=== PATIENT | female | born 1990 | race Caucasian/White ===

== ENCOUNTER → 2019-11-20 | Outpatient (CLI) | payer OTHER ==
[2019-11-20 15:12] LABS: BASOPHILS ABSOLUTE AUTO 0.04 K/mm3 (0.00-0.23); BASOPHILS PERCENT AUTO 1 % (0-2); EOSINOPHILS ABSOLUTE AUTO 0.09 K/mm3 (0.00-0.68); EOSINOPHILS PERCENT AUTO 1 % (0-6); Hematocrit 42.6 % (33.0-51.0); Hemoglobin 14.5 g/dL (11.5-16.0); IMMATURE GRAN ABSOLUTE AUTO 0.02 K/mm3 (0.00-0.10); IMMATURE GRAN PERCENT AUTO 0 % (0-1); LYMPHOCYTES ABSOLUTE AUTO 2.03 K/mm3 (0.84-5.20); LYMPHOCYTES PERCENT AUTO 32 % (21-46); MONOCYTES ABSOLUTE AUTO 0.44 K/mm3 (0.16-1.47); MONOCYTES PERCENT AUTO 7 % (4-13); Mean Corpuscular HGB 29.8 pg (26.0-34.0); Mean Corpuscular Volume 88 fL (80-100); NEUTROPHILS ABSOLUTE AUTO 3.65 K/mm3 (1.96-9.15); NEUTROPHILS PERCENT AUTO 58 % (41-73); RDW Coefficient Variation 11.8 % (11.7-14.2); RDW Standard Deviation 37.7 fL (35.1-46.3); Red Blood Cell Count 4.87 M/mm3 (3.80-5.20); White Blood Cell Count 6.27 K/mm3 (4.00-11.30)
[2019-11-20 15:24] LABS: Mean Platelet Volume 13.1 fL (9.1-12.4)
[2019-11-20 15:28] LABS: Alanine Aminotransfer (ALT/SGP 57 U/L (12-78); Albumin, Blood 4.6 g/dL (3.4-5.0); Albumin/Globulin Ratio 1.5 (0.8-1.8); Alk Phos 55 U/L (40-126); Anion Gap 12 mmol/L (6-16); Aspartate Aminotrans (AST/SGOT 60 U/L (12-37); Bilirubin, Total 0.8 mg/dL (0.1-1.0); Blood Urea Nitrogen 17 mg/dL (8-24); Bun/Creatinine Ratio 27.4 (12.0-20.0); CO2, Blood 25 mmol/L (21-32); Calcium, Blood 9.3 mg/dL (8.5-10.1); Chloride, Blood 100 mmol/L (98-108); Creatinine, Blood 0.62 mg/dL (0.40-1.00); Globulin, Blood 3.1 g/dL (2.2-4.0); Glomerular Filtration Rate >60 (60-); Glucose, Blood 85 mg/dL (70-99); Sodium, Blood 137 mmol/L (136-145); Thyroid Stimulating Hormone 1.936 uIU/mL (0.360-4.800); Total Protein, Blood 7.7 g/dL (6.4-8.2)
[2019-11-20 16:17] LABS: Platelet Count 162 K/mm3 (150-400)
== END ==
LOC: LAB SHORT 15:04 → LAB EV 15:04
PROVIDERS: Nurse Practitioner
DX: R53.83 Other fatigue (principal); Z86.39 Personal history of other endocrine, nutritional and metabolic disease
CPT/HCPCS: 80053; 84443; 85025

== ENCOUNTER → 2020-08-31 | Outpatient (CLI) | payer OTHER | END | disposition home or self-care (01) | LOC: LAB EV 16:19 → LAB SHORT 16:19 | DX: R07.0 Pain in throat (principal) | CPT/HCPCS: 87081 ==

== ENCOUNTER 2021-01-18 19:04 | Observation (INO) | payer OTHER ==
[~2021-01-18] VITALS: Ht 167.6 cm; Wt 59.6 kg
[2021-01-18] MEDS ORDERED: FISH OIL 1,2001 EAC1 PO (19:23)
[2021-01-18] MEDS ORDERED: ONE DAILY ESS400 MCG PO (19:23)
[2021-01-18] MEDS ORDERED: MAGNESIUM GLU27.5 M1 PO (19:27)
[2021-01-18] MEDS ORDERED: ELEMENTAL ZINC30 MG PO (19:27)
[2021-01-18] MEDS ORDERED: VITAMIN B-625 MG PO (19:28)
[2021-01-18 19:44] LABS: BASOPHILS ABSOLUTE AUTO 0.05 K/mm3 (0.00-0.23); BASOPHILS PERCENT AUTO 1 % (0-2); EOSINOPHILS ABSOLUTE AUTO 0.07 K/mm3 (0.00-0.68); EOSINOPHILS PERCENT AUTO 1 % (0-6); Hematocrit 44.4 % (33.0-51.0); Hemoglobin 14.6 g/dL (11.5-16.0); IMMATURE GRAN ABSOLUTE AUTO 0.02 K/mm3 (0.00-0.10); IMMATURE GRAN PERCENT AUTO 0 % (0-1); LYMPHOCYTES ABSOLUTE AUTO 2.72 K/mm3 (0.84-5.20); LYMPHOCYTES PERCENT AUTO 44 % (21-46); MONOCYTES PERCENT AUTO 5 % (4-13); Mean Corpuscular HGB 30.1 pg (26.0-34.0); Mean Corpuscular HGB Conc 32.9 g/dL (31.5-36.5); Mean Corpuscular Volume 92 fL (80-100); NEUTROPHILS PERCENT AUTO 49 % (41-73); Platelet Count 133 K/mm3 (150-400); RDW Coefficient Variation 12.1 % (11.7-14.2); RDW Standard Deviation 40.7 fL (35.1-46.3); Red Blood Cell Count 4.85 M/mm3 (3.80-5.20); White Blood Cell Count 6.16 K/mm3 (4.00-11.30)
[2021-01-18 19:58] LABS: Alanine Aminotransfer (ALT/SGP 60 U/L (12-78); Albumin/Globulin Ratio 1.5 (0.8-1.8); Alk Phos 44 U/L (50-136); Anion Gap 8 mmol/L (6-16); Aspartate Aminotrans (AST/SGOT 25 U/L (12-37); Bilirubin, Total 0.6 mg/dL (0.1-1.0); Blood Urea Nitrogen 25 mg/dL (8-24); Bun/Creatinine Ratio 31.2 (12.0-20.0); CO2, Blood 26 mmol/L (21-32); Calcium, Blood 9.8 mg/dL (8.5-10.1); Chloride, Blood 105 mmol/L (98-108); Globulin, Blood 3.4 g/dL (2.2-4.0); Glomerular Filtration Rate >60 (60-); Glucose, Blood 82 mg/dL (70-99); Potassium, Blood 4.1 mmol/L (3.5-5.5); Sodium, Blood 139 mmol/L (136-145); Total Protein, Blood 8.4 g/dL (6.4-8.2)
[2021-01-18 19:59] LABS: Mean Platelet Volume 13.7 fL (9.1-12.4)
[2021-01-18 21:22] LABS: Troponin I <0.015 ng/mL (0.000-0.040)
[2021-01-18 23:58] LABS: Source, Urine Clean Catch
[2021-01-19 00:01] LABS: Bilirubin, Urine Neg (Neg); Blood, Urine Neg (Neg); Glucose Qualitative, Urine Neg (Neg); Ketones, Urine Neg (Neg); Leukocyte Esterase, Urine Neg (Neg); Nitrite, Urine Neg (Neg); Protein, Urine Neg (Neg); Urobilinogen, Urine NORM (Normal)
[2021-01-19 00:06] LABS: Appearance, Urine Clear (Clear); Color, Urine Yellow (P-Yellow)
[2021-01-19 02:07] LABS: Influenza A, PCR NEGATIVE (NEGATIVE); Influenza B, PCR NEGATIVE (NEGATIVE); Resp Syncytial Virus, PCR NEGATIVE (NEGATIVE); SARS-Cov-2 (COVID-19) PCR, MMC NEGATIVE (NEGATIVE)
[2021-01-19 04:08] LABS: BASOPHILS ABSOLUTE AUTO 0.06 K/mm3 (0.00-0.23); BASOPHILS PERCENT AUTO 1 % (0-2); EOSINOPHILS ABSOLUTE AUTO 0.12 K/mm3 (0.00-0.68); EOSINOPHILS PERCENT AUTO 2 % (0-6); Hematocrit 38.2 % (33.0-51.0); Hemoglobin 12.9 g/dL (11.5-16.0); IMMATURE GRAN ABSOLUTE AUTO 0.01 K/mm3 (0.00-0.10); IMMATURE GRAN PERCENT AUTO 0 % (0-1); LYMPHOCYTES ABSOLUTE AUTO 3.73 K/mm3 (0.84-5.20); LYMPHOCYTES PERCENT AUTO 56 % (21-46); MONOCYTES PERCENT AUTO 6 % (4-13); Mean Corpuscular HGB 30.6 pg (26.0-34.0); Mean Corpuscular HGB Conc 33.8 g/dL (31.5-36.5); Mean Corpuscular Volume 91 fL (80-100); NEUTROPHILS ABSOLUTE AUTO 2.36 K/mm3 (1.96-9.15); NEUTROPHILS PERCENT AUTO 35 % (41-73); Platelet Count 128 K/mm3 (150-400); RDW Coefficient Variation 12.1 % (11.7-14.2); RDW Standard Deviation 39.8 fL (35.1-46.3); Red Blood Cell Count 4.21 M/mm3 (3.80-5.20); White Blood Cell Count 6.68 K/mm3 (4.00-11.30)
[2021-01-19 04:09] LABS: Mean Platelet Volume 13.4 fL (9.1-12.4)
[2021-01-19 04:18] LABS: Anion Gap 5 mmol/L (6-16); Blood Urea Nitrogen 21 mg/dL (8-24); Bun/Creatinine Ratio 29.2 (12.0-20.0); CO2, Blood 26 mmol/L (21-32); Calcium, Blood 8.7 mg/dL (8.5-10.1); Chloride, Blood 112 mmol/L (98-108); Creatinine, Blood 0.72 mg/dL (0.40-1.00); Glomerular Filtration Rate >60 (60-); Glucose, Blood 92 mg/dL (70-99); Potassium, Blood 3.7 mmol/L (3.5-5.5); Sodium, Blood 143 mmol/L (136-145)
--- NOTE | 2021-01-19 05:29 | NUR ---
ADMIT NOTE/SHIFT SUMMARY PATIENT ADMITTED FROM ER EARLIER THIS SHIFT. FIANCE AT THE BEDSIDE. PATIENT PLEASENT AND COOPERATIVE AND REPORTS SOME DIZZINESS WITH STANDING AND AMBULATION, HOWEVER, PATIENT WAS ABLE TO EASILY TRANSFER SELF FROM THE GURNEY TO THE BED. PATIENT SETTLED IN AND ORIENTED TO THE ROOM, UNIT, AND CALL LIGHT. ZOLL AT THE BEDSIDE, PADS ON PATIENT. ATROPINE AT THE BEDSIDE. HEART RATE HAS RANGED FROM APPROX THE UPPER 30'S TO THE 50'S. PATIENT HAS APPEARED TO SLEEP WELL WITH NO COMPLAINTS OF PAIN. PATIENT CURRENTLY APPEARS TO BE ASLEEP. WILL CONTINUE CURRENT PLAN OF CARE AND REPORT TO ONCOMING RN.
--- NOTE | 2021-01-19 11:00 | NUR ---
UPDATE PT ABLE TO TOLERATE AMBULATING T/O UNIT. PT REPORTS SOB BUT NO DIZZINESS. SPOKE WITH HC RN, WILL CONTINUE WITH TREADMILL STRESS TEST THIS AFTERNOON.
--- NOTE | 2021-01-19 11:11 | NUR ---
BAG MACHINE HELPER AT BEDSIDE BAG MACHINE HELPER AT BEDSIDE. PT NO LONGER NPO. ORDERS FOR LABS, SEE EHR. ORDERS FOR STRESS TEST, SEE EHR. IF PT ABLE TO TOLERATE AMBULATING HALLWAYS INFORMED TO CONTINUE WITH TREADMILL STRESS TEST THIS PM. WILL UPDATE AFTER AMBULATION TRIAL.
--- NOTE | 2021-01-19 12:30 | NUR ---
PT TO HEART CENTER PT TO HEART CENTER FOR TREADMILL STRESS TEST. TAKEN BY DINORA RN BY WHEELCHAIR.
--- NOTE | 2021-01-19 15:07 | NUR ---
ADMIT:01/18/21 DISCHARGE: DX: Symptomatic Sinus bradycardia CC: kwilcox DAMIÁN CALL: RESIDENCE: Home CAREGIVER:Neville Garcia, spouse, DX: Hypothyroidism in DME:none CCM: none HOME HEALTH: none SUMMARY: Admit: 01/18/21 01/19/21- Per chart review with Dr. Smiley, pt is being seen by cardiology who has ordered treadmill stress test today and echocardiogram. Cardiology would like the pt to stay overnight for observation. She could potentially d/c Saturday. -juana
--- NOTE | 2021-01-19 16:14 | NUR ---
ADMIT:01/18/21 DISCHARGE: DX: Symptomatic Sinus bradycardia CC: kwilcox DAMIÁN CALL: RESIDENCE: Home CAREGIVER:Neville Garcia, spouse, DX: Hypothyroidism in DME:none CCM: none HOME HEALTH: none SUMMARY: Admit: 01/18/21 01/19/21- Per chart review with Dr. Smiley, pt is being seen by cardiology who has ordered treadmill stress test today and echocardiogram. Cardiology would like the pt to stay overnight for observation. She could potentially d/c Saturday. -jauna
--- NOTE | 2021-01-19 18:00 | NUR ---
SHIFT SUMMARY PT ALERT AND ORIENTED X 4. HR RANGED FROM 30'S-70'S. PT ABLE TO TOLERATE AMBULATING WITHIN UNIT WITH ANIMAL LABORATORY HELPER AND THIS RN. BP HYPOTENSIVE AT TIMES, MAP ABOVE 65. PT REPORTS NO DIZZINESS DURING SHIFT. PT REPORTS SOB AT REST AND WITH EXERTION. STATES THIS HAS BEEN OCCURING FOR 2 WEEKS. OXYGEN SATURATION MAINTAINED ABOVE 92% ON RA. ZOLL AND ATROPINE AT PT'S BEDSIDE PER PHYSICIAN ORDER. PACER PADS IN PACE. WILL CONTINUE TO MONITIOR UNTIL REPORT GIVEN TO NIGHTSHIFT RN.
--- NOTE | 2021-01-20 06:38 | NUR ---
SHIFT SUMMARY PATIENT VERY PLEASENT AND COOPERATIVE. PATIENT WENT ON A WALK BEFORE BED AND TOLERATED IT WELL, PATIENT'S HEART RATE INCREASED INTO THE 60'S-70'S WHEN UP MOVING ABOUT. PATIENT'S HEART RATE THEN DECREASED BACK TO THE 40'S-50'S AT REST. PATIENT'S HEART RATE APPEARED TO DROP INTO THE 30'S WHILE ASLEEP. THIS MORNING AT APPROX 0500 PATIENT REPORTED FEELING "LIKE IT'S HARD TO CATCH MY BREATH." PATIENT O2 SATURATION CHECKED AND SHE WAS AT 100%. PATIENT REPORTS THAT SHE HAS BEEN HAVING EPISODES OF SHORTNESS OF BREATH, "ESPCIALLY AT NIGHT WHEN I'M TRYING TO SLEEP." PATIENT'S EPISODE OF SHORTNESS OF BREATH HAS SINCE RESOLVED. ZOLL AT BEDSIDE, PACER PADS IN PLACE. ATROPINE AT THE BEDSIDE. PATIENT CURRENTLY RESTING IN BED ATTEMPTING TO SLEEP. WILL CONTINUE CURRENT PLAN OF CARE AND REPORT TO ONCOMING RN.
--- NOTE | 2021-01-20 09:10 | NUR ---
pt sitting up in the chair, a/ox3, pleasant and cooperative with care, follows commands well, denies pain, but reports sob while laying in bed, sleeping, feels better up and moving, lungs are clear t/o, resp even and unlabored, no cough noted, hrr, tele in place running sb to sr, no edema noted, ppp+2, cap refill <3sec, vs stable, afebrile, iv site is clear and patent, btx4, hypo, pt reports no bm x5 days, gave prune juice and will ask for miralax, voids wihtout diff, skin c/w/d, jennifer jewell, call light in reach.
--- NOTE | 2021-01-20 12:08 | NUR ---
01/20/21- per Dr. Smiley, pt is ready to d/c home. Pt will need to follow up with PCP within 1 week and with Cardiology after she has completed the 30-day Zio patch. [facility] Dr. Smiley to write [facility] Talked with pt and reviewed DAMIÁN letter. She acknowledged understanding and would like to follow up with her PCP, Dr. Whaley. She is able to get a ride home. -juana
[2021-01-20] MEDS ORDERED: SENN187 PO (12:17)
[2021-01-20] MEDS ORDERED: MIRALAX17 G6 (12:18)
[2021-01-20] MEDS ORDERED: MIDO5 PO (12:19)
--- NOTE | 2021-01-20 12:44 | NUR ---
PT HAS BEEN DISCHARGED TO HOME, ZIO PATCH IN PLACE, SHE HAD A SHOWER, IV REMOVED INTACT, HAD A BM TODDAY, AND REPORTS FEELS MUCH BETTER, WENT OVER DISCHARGE INSTRUCTIONS WITH HER, SHE VERBALIZED UNDERSTANDING. IS REQUESTING A WORK RELEASE FOR FEW DAYS, WHEN THAT IS AVAILABLE WILL TAKE HER OUT VIA WHEELCHAIR WITH S.O. IN ATTENDENCE. SHE HAS ALL HER BELONGINGS.
--- NOTE | 2021-01-20 12:54 | NUR ---
PT LEFT VIA AMBULATION WITH S.O. IN ATTENDENCE.
[2021-01-23 09:07] LABS: ANGIOTENSIN-CONVERTING ENZYME 18 U/L (14-82)
[2021-01-23 14:08] LABS: LYME IGG/IGM AB <0.91 ISR (0.00-0.90)
== END 2021-01-20 13:20 | disposition home or self-care (01) ==
LOC: ER 19:04 → PCU 19:05
PROVIDERS: Internal Medicine Cardiovascular Disease; Nurse Practitioner Acute Care; Physician Assistant; ADMIT Internal Medicine
DX: R00.1 Bradycardia, unspecified (principal); I95.9 Hypotension, unspecified; K59.09 Other constipation; Z88.0 Allergy status to penicillin; Z87.891 Personal history of nicotine dependence; Z20.822 Contact with and (suspected) exposure to COVID-19
CPT/HCPCS: 0241U; 36415; 71045; 80048; 80053; 81003; 82164; 83735; 84443; 84484; 84703; 85025; 86038; 86430; 86618; 93005; 93010; 93017; 93246; 93306; 96372; 99284-25; A9270; G0378; J1650; J7030

== ENCOUNTER 2021-01-25 16:26 | Emergency (ER) | payer OTHER ==
[~2021-01-25] VITALS: Ht 167.6 cm; Wt 56.7 kg
[~2021-01-25 16:26] MED LIST: ELEMENTAL ZINC30 MG PO; FISH OIL 1,2001 EAC1 PO; MAGNESIUM GLU27.5 M1 PO; MIDO5 PO; MIRALAX17 G6; ONE DAILY ESS400 MCG PO; SENN187 PO; VITAMIN B-625 MG PO
[2021-01-25 16:55] LABS: BASOPHILS ABSOLUTE AUTO 0.04 K/mm3 (0.00-0.23); BASOPHILS PERCENT AUTO 1 % (0-2); EOSINOPHILS ABSOLUTE AUTO 0.02 K/mm3 (0.00-0.68); EOSINOPHILS PERCENT AUTO 1 % (0-6); Hematocrit 41.5 % (33.0-51.0); Hemoglobin 13.9 g/dL (11.5-16.0); IMMATURE GRAN ABSOLUTE AUTO 0.02 K/mm3 (0.00-0.10); IMMATURE GRAN PERCENT AUTO 1 % (0-1); LYMPHOCYTES ABSOLUTE AUTO 1.78 K/mm3 (0.84-5.20); LYMPHOCYTES PERCENT AUTO 51 % (21-46); MONOCYTES ABSOLUTE AUTO 0.39 K/mm3 (0.16-1.47); MONOCYTES PERCENT AUTO 11 % (4-13); Mean Corpuscular HGB 30.6 pg (26.0-34.0); Mean Corpuscular HGB Conc 33.5 g/dL (31.5-36.5); Mean Corpuscular Volume 91 fL (80-100); Mean Platelet Volume 12.6 fL (9.1-12.4); NEUTROPHILS ABSOLUTE AUTO 1.27 K/mm3 (1.96-9.15); NEUTROPHILS PERCENT AUTO 36 % (41-73); Platelet Count 116 K/mm3 (150-400); RDW Coefficient Variation 12.4 % (11.7-14.2); RDW Standard Deviation 41.4 fL (35.1-46.3); Red Blood Cell Count 4.54 M/mm3 (3.80-5.20); White Blood Cell Count 3.52 K/mm3 (4.00-11.30)
[2021-01-25 17:12] LABS: Alanine Aminotransfer (ALT/SGP 103 U/L (12-78); Albumin, Blood 4.5 g/dL (3.4-5.0); Albumin/Globulin Ratio 1.3 (0.8-1.8); Alk Phos 42 U/L (50-136); Anion Gap 6 mmol/L (6-16); Aspartate Aminotrans (AST/SGOT 38 U/L (12-37); Bilirubin, Total 0.9 mg/dL (0.1-1.0); Blood Urea Nitrogen 20 mg/dL (8-24); Bun/Creatinine Ratio 26.2 (12.0-20.0); CO2, Blood 29 mmol/L (21-32); Calcium, Blood 9.2 mg/dL (8.5-10.1); Chloride, Blood 104 mmol/L (98-108); Creatinine, Blood 0.76 mg/dL (0.40-1.00); Globulin, Blood 3.5 g/dL (2.2-4.0); Glomerular Filtration Rate >60 (60-); Glucose, Blood 80 mg/dL (70-99); Magnesium, Blood 2.2 mg/dL (1.6-2.4); Potassium, Blood 3.9 mmol/L (3.5-5.5); Sodium, Blood 139 mmol/L (136-145)
[2021-01-25 18:58] LABS: Base Excess Venous 2.4 mmol/L; Bicarbonate Venous 26.1 mmol/L (24.0-30.0); PCO2 Venous 40.9 mmHg (38-42); PO2 Venous 48.8 mmHg (38-42); pH Blood Venous 7.43 (7.34-7.37)
[2021-01-25] MEDS ORDERED: Ativan0.5 MG SL (20:03)
[2021-01-27 08:10] LABS: HBSAG SCREEN Negative (Negative); HEP A AB, IGM Negative (Negative); HEP B CORE AB, IGM Negative (Negative); HEP C VIRUS AB <0.1 (0.0-0.9)
== END 2021-01-25 20:44 | disposition home or self-care (01) ==
LOC: ER 16:26
PROVIDERS: Emergency Medicine; Physician Assistant
DX: R00.1 Bradycardia, unspecified (principal); R74.01 Elevation of levels of liver transaminase levels; D72.819 Decreased white blood cell count, unspecified; Z79.899 Other long term (current) drug therapy
CPT/HCPCS: 36415; 71045; 80053; 80074; 82803; 83735; 85025; 86308; 93005; 93010; 96374; 99284-25; J2060

== ENCOUNTER → 2022-07-03 | Outpatient (CLI) | payer OTHER ==
[~2022-07-03] MED LIST changes: +Ativan0.5 MG SL
[2022-07-04 10:20] LABS: Candida species (DNA Probe) Negative (NEGATIVE); G. vaginalis (DNA Probe) Positive (NEGATIVE); T. vaginalis (DNA Probe) Negative (NEGATIVE)
[2022-07-04 15:10] LABS: HPV 16 Negative (Negative); HPV 18 Negative (Negative); HPV OTHER HR TYPES Positive (Negative)
== END | disposition home or self-care (01) ==
LOC: LAB 11:29 → LAB SHORT 11:29
PROVIDERS: Family Medicine
DX: Z01.419 Encounter for gynecological examination (general) (routine) without abnormal findings (principal); N89.8 Other specified noninflammatory disorders of vagina
CPT/HCPCS: 87480; 87510; 87624; 87625; 87660; G0123

== ENCOUNTER → 2022-09-07 | Outpatient (CLI) | payer OTHER ==
[2022-09-09 01:10] LABS: CHLAMYDIA TRACHOMATIS, NAA Negative (Negative)
== END | disposition home or self-care (01) ==
LOC: LAB SHORT 12:34 → LAB 12:34
PROVIDERS: Advanced Practice Midwife
DX: Z11.3 Encounter for screening for infections with a predominantly sexual mode of transmission (principal)
CPT/HCPCS: 87491; 87591